=== PATIENT | female | born 1980 | race American Indian/Alaskan Native ===

== ENCOUNTER 2019-06-06 14:48 | Outpatient (CLI) | payer OTHER, MEDICAID ==
[2019-06-06 17:31] LABS: BASOPHILS % (AUTO) 0.4 %; EOSINOPHILS # (AUTO) 0.1 10^3/uL (0.0-0.7); EOSINOPHILS % (AUTO) 1.1 %; HGB - HEMOGLOBIN 14.4 g/dL (12.0-16.0); LYMPHOCYTES # (AUTO) 2.3 10^3/uL (1.5-3.5); LYMPHOCYTES % (AUTO) 21.3 %; MEAN CORPUSCULAR HEMOGLOBIN 31.2 pg (27.0-31.0); MEAN CORPUSCULAR HGB CONC 34.4 g/dL (32.0-36.0); MEAN CORPUSCULAR VOLUME 90.7 fL (81.0-99.0); MEAN PLATELET VOLUME 9.7 fL (7.9-10.8); MONOCYTES # (AUTO) 0.6 10^3/uL (0.0-1.0); MONOCYTES % (AUTO) 5.2 %; NEUTROPHILS # (AUTO) 7.6 10^3/uL (1.5-6.6); NEUTROPHILS % (AUTO) 71.6 %; PLT - PLATELET COUNT 257 10^3/uL (130-450); RED BLOOD COUNT 4.62 10^6/uL (4.20-5.40); RED CELL DISTRIBUTION WIDTH 11.3 % (12.0-15.0); WHITE BLOOD COUNT 10.6 x10^3/uL (4.8-10.8)
[2019-06-06 17:58] LABS: HB2 TOTAL 13.9 g/dL; HEMOGLOBIN A1C 0.47 g/dL; HEMOGLOBIN A1C % 5.2 % (4.6-6.2)
[2019-06-07 12:38] LABS: HEPATITIS B SURFACE ANTIGEN NON-REACTIVE (NON-REACTIVE)
[2019-06-07 14:20] LABS: HIV AG/AB 4TH GEN NON-REACTIVE (NON-REACTIVE)
== END 2019-06-06 14:49 | disposition home or self-care (01) ==
LOC: LAB.S 14:48
PROVIDERS: ATTEND Midwife
DX: O09.511 Supervision of elderly primigravida, first trimester (principal); O99.89 Other specified diseases and conditions complicating pregnancy, childbirth and the puerperium; E55.9 Vitamin D deficiency, unspecified; Z3A.00 Weeks of gestation of pregnancy not specified
CPT/HCPCS: 36415; 81220; 81599; 82306; 83036; 85025; 86592; 86762; 86850; 86900; 86901; 87340; 87389

== ENCOUNTER 2019-06-20 13:32 | Outpatient (CLI) | payer OTHER, MEDICAID | END 2019-06-20 13:33 | disposition home or self-care (01) | LOC: LAB.S 13:32 | PROVIDERS: ATTEND Midwife | DX: O09.512 Supervision of elderly primigravida, second trimester (principal); Z3A.00 Weeks of gestation of pregnancy not specified | CPT/HCPCS: 36415 ==

== ENCOUNTER 2019-12-01 08:00 | Outpatient (CLI) | payer MEDICAID, OTHER ==
[2019-12-01 16:28] LABS: TOTAL PROTEIN,URINE TIMED < 6 mg/dL; TOTAL VOLUME 24HRS,URINE 3900 mL
== END 2019-12-01 23:59 | disposition home or self-care (01) ==
LOC: LAB.R 08:00
PROVIDERS: ATTEND Midwife
DX: O14.93 Unspecified pre-eclampsia, third trimester (principal)
CPT/HCPCS: 84156

== ENCOUNTER 2020-08-15 14:42 | Emergency (ER) | payer MEDICAID ==
--- NOTE | 2020-08-15 15:14 | ED Physician Documentation ---
History of Present Illness - Stated complaint Stated Complaint: HIGH BP - Chief complaint Chief Complaint: Cardiac - History obtained from History obtained from: Patient - Additonal information Additional information: 40-year-old woman who is 8 months from a complicated by gestational hypertension, preeclampsia and help syndrome. Over the last few days she has had an occasional right sided stabbing chest pain that lasts 2 to 3 seconds at a time. Generally at work. She also is feeling a lot of anxiety and while feeling anxious this morning took her blood pressure and it was in the neighborhood of 190/90. Otherwise she is quite healthy eating a vegan/plant-based diet and exercising plenty. Review of Systems Constitutional: reports: Fatigue. denies: Chills Cardiac: reports: Chest pain / pressure. denies: Palpitations Respiratory: denies: Dyspnea, Cough PD PAST MEDICAL HISTORY - Allergies Allergies/Adverse Reactions: Allergies Allergy/AdvReac Type Severity Reaction Status Date / Time No Known Drug Allergies Allergy Verified 08/15/20 14:44 PD ED PE NORMAL - Vitals Vital signs reviewed: Yes - General General: Alert and oriented X 3, No acute distress - HEENT HEENT: PERRL, EOMI - Neck Neck: Supple, no meningeal sign, No bony TTP - Cardiac Cardiac: RRR, No murmur - Respiratory Respiratory: No respiratory distress, Clear bilaterally - Abdomen Abdomen: Non tender - Extremities Extremities: No edema, No calf tenderness / cord - Neuro Neuro: Alert and oriented X 3, Normal speech Results - Vitals Vitals: Vital Signs - 24 hr 08/15/20 08/15/20 14:44 15:24 Temperature 36.5 C Heart Rate 70 67 Respiratory 16 20 Rate Blood Pressure 127/83 H 121/96 H O2 Saturation 99 99 Oxygen O2 Source Room air - EKG (time done) 1455 Rate: Rate (enter#) (67) Rhythm: NSR Center: Normal Intervals: Normal [place] QRS: Normal Ischemia: Normal ST segments - Labs Labs: Laboratory Tests 08/15/20 08/15/20 08/15/20 15:22 15:22 15:22 WBC 5.7 RBC 4.41 Hgb 14.6 Hct 41.1 MCV 93.2 MCH 33.1 H MCHC 35.5 RDW 11.5 L Plt Count 260 MPV 9.9 Sodium 135 Potassium 3.6 Chloride 100 L Carbon Dioxide 26 Anion Gap 9.0 BUN 19 Creatinine 0.7 Estimated GFR (MDRD) 94 Glucose 102 H Calcium 9.2 Troponin I High Sens < 2.3 L PD MEDICAL DECISION MAKING - ED course ED course: 40-year-old woman took her blood pressure today when she was feeling anxious and it was expectedly high. Blood pressures have been relatively normal in the department and there is no evidence of acute illness. Departure - Departure Disposition: 01 Home, Self Care Clinical Impression: Atypical chest pain Condition: Good Record reviewed to determine appropriate education?: Yes Instructions: ED Chest Pain NonCardiac Comments: No evidence of serious cause of your chest pain today and your blood pressure is basically normal here. Follow-up with your doctor as routine and return for new or worsening symptoms. Discharge Date/Time: 08/15/20 16:19
--- OUTSIDE RECORDS SUMMARY | 2020-08-15 15:15 | EXTERNAL MEDICAL SUMMARY RPT | Continuity of Care Document ---
:1980 Demographics Phone Unavailable Preferred Language Unknown Marital Status Unknown Alevism Affiliation Unknown Race Unknown Ethnic Group Unknown Author Organization [facility] Address [address] [id number] Phone Social History date description facility [id number]
[2020-08-15 15:25] VITALS: BP 121/96
[2020-08-15 15:28] LABS: HCT - HEMATOCRIT 41.1 % (37.0-47.0); HGB - HEMOGLOBIN 14.6 g/dL (12.0-16.0); MEAN CORPUSCULAR HEMOGLOBIN 33.1 pg (27.0-31.0); MEAN CORPUSCULAR HGB CONC 35.5 g/dL (32.0-36.0); MEAN CORPUSCULAR VOLUME 93.2 fL (81.0-99.0); MEAN PLATELET VOLUME 9.9 fL (7.9-10.8); RED BLOOD COUNT 4.41 10^6/uL (4.20-5.40); RED CELL DISTRIBUTION WIDTH 11.5 % (12.0-15.0); WHITE BLOOD COUNT 5.7 x10^3/uL (4.8-10.8)
[2020-08-15 15:44] LABS: CALCIUM 9.2 mg/dL (8.5-10.3); CREATININE 0.7 mg/dL (0.4-1.0); POTASSIUM 3.6 mmol/L (3.5-5.0)
== END 2020-08-15 16:19 | disposition home or self-care (01) ==
LOC: ED 14:42
DX: R07.89 Other chest pain (principal); F41.9 Anxiety disorder, unspecified
CPT/HCPCS: 36415; 80048; 84484; 85027; 93005; 99284

== ENCOUNTER 2021-02-07 12:18 | Outpatient (CLI) | payer OTHER ==
--- NOTE | 2021-02-07 14:01 | XRAY Report ---
PROCEDURE: Knee 3 View BILAT INDICATIONS: BACK PAIN TECHNIQUE: 2 views of the bilateral knee(s) were acquired. COMPARISON: None. FINDINGS: BONES/JOINT: No acute, displaced fracture or dislocation. No substantial suprapatellar joint effusio n. SOFT TISSUES: No significant abnormality. IMPRESSION: 1.No acute osseous abnormality. Reviewed by: Phuc Doe MD on 02/07/2021 1:59 PM PDT Approved by: Phuc Deo MD on 02/07/2021 1:59 PM PDT Station ID: [id number]
--- NOTE | 2021-02-07 14:05 | XRAY Report ---
PROCEDURE: Foot 3 View BILAT INDICATIONS: PAIN IN BILATERAL ANKLES AND JOINTS OF BILATERAL FEET TECHNIQUE: 3 views of the bilateral feet were acquired. COMPARISON: None. FINDINGS: Bones: No fractures or dislocations. Prominent right calcaneal enthesophyte. No suspicious bony lesi ons. Soft tissues: No tibiotalar joint effusion. IMPRESSION: No acute osseous abnormality. Reviewed by: Phuc Doe MD on 02/07/2021 2:04 PM PDT Approved by: Phuc Doe MD on 02/07/2021 2:04 PM PDT Station ID: [id number]
--- NOTE | 2021-02-07 14:06 | XRAY Report ---
PROCEDURE: Lumbar Spine 2 View INDICATIONS: BACK PAIN TECHNIQUE: 3 views of the lumbar spine were acquired. COMPARISON: None. FINDINGS: Bones: 5 [id number] vertebrae are present. There is normal bony alignment. Mild degenerative e ndplate changes and bilateral facet arthrosis at L5-S1 level is seen. No vertebral body compression fractures. No suspicious bony lesions. Soft tissues: Overlying bowel gas pattern is normal. No suspicious soft tissue calcifications. IMPRESSION: Mild degenerative disc disease in lower lumbar spine at L5-S1 level. No compression frac ture or spondylolisthesis. Reviewed by: Ezequiel Hart MD on 02/07/2021 2:05 PM PDT Approved by: Ezequiel Hart MD on 02/07/2021 2:05 PM PDT Station ID: [id number]
--- NOTE | 2021-02-07 14:07 | XRAY Report ---
PROCEDURE: Cervical Spine 2 View INDICATIONS: PAIN TECHNIQUE: 3 view(s) of the cervical spine were acquired. COMPARISON: None. FINDINGS: Bones: No fractures or dislocations to the C7-T1 level. There is straightening of normal cervical l ordosis. Degenerative endplate changes at C5-6 and C6-7 levels are seen. The lateral masses of C1 jose ear intact on the odontoid view. No suspicious bony lesions. Soft tissues: No prevertebral soft tissue swelling. IMPRESSION: Mild degenerative disc disease in lower cervical spine. No fracture or dislocation. Reviewed by: Ezequiel Hart MD on 02/07/2021 2:06 PM PDT Approved by: Ezequiel Hart MD on 02/07/2021 2:06 PM PDT Station ID: [id number]
--- NOTE | 2021-02-07 14:07 | XRAY Report ---
PROCEDURE: Ankle 3 View BILAT INDICATIONS: ANKLE PAIN TECHNIQUE: 6 views of the ankle were acquired. COMPARISON: None FINDINGS: Bones: No fractures or dislocations. Ankle mortise is normally aligned. Well-defined right plantar calcaneal enthesophyte is seen. No suspicious bony lesions. Soft tissues: No tibiotalar joint effusion. Achilles tendon appears normal. IMPRESSION: No ankle fracture or dislocation. Intact ankle mortise. Well-defined right plantar calca chapin enthesophyte. Reviewed by: Ezequiel Hart MD on 02/07/2021 2:05 PM PDT Approved by: Ezequiel Hart MD on 02/07/2021 2:05 PM PDT Station ID: [id number]
[2021-02-07 15:16] LABS: ALBUMIN 4.3 g/dL (3.2-5.5); ALBUMIN/GLOBULIN RATIO 2.4 (1.0-2.2); ALKALINE PHOSPHATASE 42 IU/L (42-121); ALT ALANINE AMINOTRANSFERASE 25 IU/L (10-60); AST ASPARTATE AMINOTRANSFERASE 26 IU/L (10-42); BILIRUBIN,TOTAL 1.1 mg/dL (0.2-1.0); BUN - BLOOD UREA NITROGEN 15 mg/dL (6-20); CALCIUM 9.3 mg/dL (8.5-10.3); CARBON DIOXIDE - CO2 28 mmol/L (21-32); CHLORIDE 95 mmol/L (101-111); CHOL/HDL RATIO 2.2 (<4.4); CHOLESTEROL 201 mg/dL; CREATININE 0.7 mg/dL (0.4-1.0); GFR - MDRD 94 (>89); GLUCOSE 69 mg/dL (70-100); HDL CHOLESTEROL 93 mg/dL; POTASSIUM 4.3 mmol/L (3.5-5.0); SODIUM 133 mmol/L (135-145); TOTAL PROTEIN 6.1 g/dL (6.7-8.2); TRIGLYCERIDES 35 mg/dL
[2021-02-07 16:01] LABS: CRP - C-REACTIVE PROTEIN < 1.0 mg/dL (0-1.0)
--- NOTE | 2021-02-08 08:40 | XRAY Report ---
PROCEDURE: Thoracic Spine 2 View INDICATIONS: PAIN TECHNIQUE: 3 views of the thoracic spine were acquired. COMPARISON: None. FINDINGS: Bones: No fractures or dislocations. No suspicious bony lesions. 12 pairs of ribs are noted, and a ppear intact where visualized. Soft tissues: No paravertebral stripe thickening. IMPRESSION: No acute osseous abnormality. Reviewed by: Jade Goetz MD on 02/08/2021 8:39 AM PDT Approved by: Jade Goetz MD on 02/08/2021 8:39 AM PDT Station ID: [id number]
[2021-02-08 13:51] LABS: HIV AG/AB 4TH GEN NON-REACTIVE (NON-REACTIVE)
[2021-02-10 09:02] LABS: ANA SCREEN NEGATIVE (NEGATIVE)
[2021-02-10 23:11] LABS: HCV RNA QNT <1.18 NOT DETECTED LogIU/mL; HCV RNA QUANT RT PCR <15 NOT DETECTED IU/mL
[2021-02-11 16:35] LABS: CYCLIC CITRULL PEPTIDE CCP IGG <16 UNITS
== END 2021-02-07 12:19 | disposition home or self-care (01) ==
LOC: DI.S 12:18
PROVIDERS: ATTEND Nurse Practitioner Family
DX: M25.561 Pain in right knee (principal); M25.562 Pain in left knee; M47.817 Spondylosis without myelopathy or radiculopathy, lumbosacral region; M51.37 Other intervertebral disc degeneration, lumbosacral region; M77.51 Other enthesopathy of right foot and ankle; M50.322 Other cervical disc degeneration at C5-C6 level; M54.50 Low back pain, unspecified
CPT/HCPCS: 36415; 80053; 80061; 81374; 83721; 85651; 86038; 86140; 86200; 87389; 87522